=== PATIENT | male | born 1970 | race Caucasian/White ===

== ENCOUNTER 2017-09-20 19:21 | Emergency (ER) | payer MEDICAID ==
[~2017-09-20] VITALS: Ht 182.9 cm; Wt 91.6 kg
[2017-09-20 19:24] VITALS: Ht 182.9 cm; Wt 91.6 kg
[2017-09-20 21:53] VITALS: BP 118/74
== END 2017-09-20 21:53 | disposition home or self-care (01) ==
LOC: ED 19:21
PROC: 3E033NZ Introduction of Analgesics, Hypnotics, Sedatives into Peripheral Vein, Percutaneous Approach (ICD-10-PCS; principal; 2017-09-20)
DX: R07.9 Chest pain, unspecified (principal); R05 Cough; I10 Essential (primary) hypertension
CPT/HCPCS: J1885; J2270

== ENCOUNTER 2019-01-13 08:40 | Day surgery (SDC) | payer MEDICAID ==
[~2019-01-13] VITALS: Ht 180.3 cm; Wt 93.4 kg
[2019-01-13 09:20] VITALS: BP 116/87
[2019-01-13 15:00] VITALS: BP 110/70
== END 2019-01-13 13:00 | disposition home or self-care (01) ==
LOC: DS 08:40 → OR 13:00 → DS 13:00
DX: D12.5 Benign neoplasm of sigmoid colon (principal); K57.30 Diverticulosis of large intestine without perforation or abscess without bleeding; Z79.899 Other long term (current) drug therapy; Z91.018 Allergy to other foods
CPT/HCPCS: 43235; 45378; J1200; J1610; J2250; J2310; J3010; J3490

== ENCOUNTER → 2019-01-27 | Outpatient (CLI) | payer MEDICAID | END | disposition home or self-care (01) | LOC: RD 19:09 | DX: M94.0 Chondrocostal junction syndrome [Tietze] (principal); M54.41 Lumbago with sciatica, right side ==